=== PATIENT | female | born 1995 | race American Indian/Alaskan Native ===

== ENCOUNTER 2018-12-15 11:02 | Emergency (ER) | payer MEDICAID ==
[2018-12-15 11:19] VITALS: BP 118/58
--- NOTE | 2018-12-15 12:22 | Emergency Department Report ---
ED General Adult HPI - General Chief complaint: Upper Respiratory Infection Stated complaint: COUGHING FOR LONG PERIODS OF TIME/CHEST PAIN Time Seen by Provider: 12/15/18 12:11 Source: patient Mode of arrival: Ambulatory Limitations: No Limitations - History of Present Illness Initial comments: Patient is 23 years old female with no significant past medical history. Patient presented to the ER complaining off dry cough for approximately 6 months now. Patient stated that she used a lot of over the counter cold medicine and antibiotic but no improvement. Patient does not know any trigger factor. Patient denied any fever, shortness of breath, nausea or vomiting or chest pain. Severity scale (0 -10): 0 - Related Data Previous Rx's Medication Instructions Recorded Last Taken Type Ciprofloxacin HCl [Cipro] 500 mg PO Q12H #20 tab 03/30/14 Unknown Rx Phenazopyridine [Pyridium] 200 mg PO TID #6 tablet 03/30/14 Unknown Rx Allergies Allergy/AdvReac Type Severity Reaction Status Date / Time No Known Allergies Allergy Verified 12/15/18 11:05 ED Review of Systems ROS: Stated complaint: COUGHING FOR LONG PERIODS OF TIME/CHEST PAIN Other details as noted in HPI Comment: All other systems reviewed and negative Constitutional: denies: chills, fever Respiratory: cough. denies: orthopnea, shortness of breath, SOB with exertion, SOB at rest, wheezing Cardiovascular: denies: chest pain, palpitations Gastrointestinal: denies: abdominal pain, nausea Musculoskeletal: denies: back pain ED Past Medical Hx - Past Medical History Previous Medical History?: No - Surgical History Past Surgical History?: No - Social History Smoking Status: Never Smoker Substance Use Type: None - Medications Home Medications: Home Medications Medication Instructions Recorded Confirmed Last Taken Type Ciprofloxacin HCl [Cipro] 500 mg PO Q12H #20 tab 03/30/14 Unknown Rx Phenazopyridine [Pyridium] 200 mg PO TID #6 tablet 03/30/14 Unknown Rx ED Physical Exam - General Limitations: No Limitations General appearance: alert, in no apparent distress - Head Head exam: Present: atraumatic, normocephalic, normal inspection - Eye Eye exam: Present: normal appearance, PERRL - ENT ENT exam: Present: normal exam, normal orophraynx, mucous membranes moist - Neck Neck exam: Present: normal inspection, full ROM. Absent: tenderness, meningismus, lymphadenopathy, thyromegaly - Respiratory Respiratory exam: Present: normal lung sounds bilaterally. Absent: respiratory distress, wheezes, rales, rhonchi, chest wall tenderness, accessory muscle use, decreased breath sounds, prolonged expiratory - Cardiovascular Cardiovascular Exam: Present: regular rate, normal rhythm, normal heart sounds - GI/Abdominal GI/Abdominal exam: Present: soft, normal bowel sounds. Absent: distended, tenderness, guarding, rebound, rigid, mass, bruit, hernia - Extremities Exam Extremities exam: Present: normal inspection, full ROM, normal capillary refill. Absent: calf tenderness - Back Exam Back exam: Present: normal inspection, full ROM - Neurological Exam Neurological exam: Present: alert, oriented X3, CN II-XII intact, normal gait, reflexes normal ED Course Vital Signs 12/15/18 11:15 Temperature 97.9 F Pulse Rate 72 Respiratory 18 Rate Blood Pressure 118/58 O2 Sat by Pulse 100 Oximetry ED Medical Decision Making - Medical Decision Making Patient is 23 years old female with no significant past medical history. Patient presented to the ER complaining off dry cough for approximately 6 months now. Patient stated that she used a lot of over the counter cold medicine and antibiotic but no improvement. Patient does not know any trigger factor. Patient denied any fever, shortness of breath, nausea or vomiting or chest pain. Patient's symptoms may be related to cough variant asthma. I will start patient on albuterol inhaler and advised patient to follow-up with her primary care physician in the next 2-3 days. Critical care attestation.: If time is entered above; I have spent that time in minutes in the direct care of this critically ill patient, excluding procedure time. ED Disposition Clinical Impression: Cough variant asthma Disposition: DC-01 TO HOME OR SELFCARE Is pt being admited?: No Condition: Stable Instructions: Asthma (ED) Additional Instructions: cough variant asthma Referrals: SAEED LOVELL MD [Primary Care Provider] - 3-5 Days
== END 2018-12-15 12:32 | disposition home or self-care (01) ==
LOC: ED 11:02
DX: J45.991 Cough variant asthma (principal); Z79.899 Other long term (current) drug therapy
CPT/HCPCS: 99282